=== PATIENT | male | born 1985 | race American Indian/Alaskan Native ===

== ENCOUNTER 2018-03-01 08:04 | Emergency (ER) | payer SELFPAY ==
[2018-03-01 08:50] LABS: Basophils % (Auto) 0.4 % (0.0-1.8); Eosinophils # (Auto) 0.1 K/mm3 (0.0-0.4); Eosinophils % (Auto) 1.5 % (0.0-4.3); Hematocrit 41.9 % (35.5-45.6); Hemoglobin 13.9 gm/dl (11.8-15.2); Lymphocytes # (Auto) 1.6 K/mm3 (1.2-5.4); Lymphocytes % (Auto) 24.7 % (13.4-35.0); Mean Corpuscular HGB Conc 33 % (32-34); Mean Corpuscular Hemoglobin 30 pg (28-32); Mean Corpuscular Volume 89 fl (84-94); Monocytes # (Auto) 0.9 K/mm3 (0.0-0.8); Monocytes % (Auto) 13.9 % (0.0-7.3); Platelet Count 228 K/mm3 (140-440); Red Blood Count 4.72 M/mm3 (3.65-5.03); Red Cell Distribution Width 13.6 % (13.2-15.2)
[2018-03-01 09:05] LABS: BUN/Creatinine Ratio 11; Blood Urea Nitrogen 10 mg/dL (9-20); Calcium 9.5 mg/dL (8.4-10.2); Hemolysis Index 4
[2018-03-01] MEDS ORDERED: TORADOL IV ONE (10:25)
[2018-03-01 11:06] LABS: Bilirubin,Urine NEG (Negative); Blood,Urine NEG (Negative); Color,Urine Yellow (Yellow); Mucus,Urine 3+ /HPF; Protein,Urine <15 mg/dL mg/dL (Negative)
--- NOTE | 2018-03-01 12:38 | Cat Scan Report ---
FINAL REPORT EXAM: CT ABDOMEN PELVIS W CON HISTORY: R sided abd pain colicy TECHNIQUE: CT of the abdomen and pelvis with IV contrast. Coronal and sagittal reconstructed imaging provided. PRIORS: None currently available. FINDINGS: ABDOMEN: Liver, stomach, spleen, pancreas, adrenals, and kidneys are unremarkable. No hydronephrosis. No suspicious lesions. There is no abdominal aortic aneurysm. No dissection. IVC is unremarkable. There is no periaortic or retroperitoneal adenopathy or mass. [id number] stool. Moderate stool in the ascending colon and rectum. No wall thickening or inflammatory changes. Terminal ilium is unremarkable. Appendix is normal. Small bowel loops are unremarkable. No obstructive pattern. No free air. No free fluid. Mesentery is unremarkable. Fat-containing umbilical hernia without strangulation. PELVIS: Small amount of free fluid in right posterior pelvis. Prostate is mildly prominent and heterogeneous. Bladder is unremarkable. No wall thickening or lesions. There is no pelvic mass or adenopathy. Inguinal regions are unremarkable. Bones: No suspicious osseous lesions on this limited examination of the skeleton. Metastatic disease better evaluated with bone scan. Spina bifida occulta L5 identified. IMPRESSION: Possible constipation. No acute bowel findings. Small amount of free fluid in the right posterior pelvis. Nonspecific.
--- NOTE | 2018-03-01 14:00 | Emergency Department Report ---
ED Abdominal Pain HPI - General Chief Complaint: Abdominal Pain Stated Complaint: ABD PAIN X 2DAYS Time Seen by Provider: 03/01/18 10:19 Source: family Mode of arrival: Ambulatory Limitations: No Limitations - History of Present Illness Initial Comments: Patient is a 32-year-old male who is complaining of right-sided abdominal pain 2 days. Patient states this is a intermittent pain that starts in the abdomen radiates into the right chest. Patient has nausea but no vomiting and no diarrhea. Patient states there is some mild shortness of breath when the pain hits. Patient states last up to about 5 minutes at a time. Patient denies any dysuria or hematuria at this time. Patient states the pain when it comes as a 7 out of 10 in severity. Severity scale (0 -10): 0 - Related Data Previous Rx's Medication Instructions Recorded Last Taken Type Dicyclomine [Bentyl] 20 mg PO QID #14 tablet 03/01/18 Unknown Rx Docusate Sodium [Colace] 100 mg PO BID #30 capsule 03/01/18 Unknown Rx Allergies Allergy/AdvReac Type Severity Reaction Status Date / Time dog dander Allergy Unknown Verified 03/01/18 08:06 ED Review of Systems ROS: Stated complaint: ABD PAIN X 2DAYS Other details as noted in HPI Comment: All other systems reviewed and negative ED Past Medical Hx - Past Medical History Previous Medical History?: No - Surgical History Past Surgical History?: No - Social History Smoking Status: Never Smoker Substance Use Type: None - Medications Home Medications: Home Medications Medication Instructions Recorded Confirmed Last Taken Type Dicyclomine [Bentyl] 20 mg PO QID #14 tablet 03/01/18 Unknown Rx Docusate Sodium [Colace] 100 mg PO BID #30 capsule 03/01/18 Unknown Rx ED Physical Exam - General Limitations: No Limitations General appearance: alert, in no apparent distress - Head Head exam: Present: atraumatic, normocephalic - Eye Eye exam: Present: normal appearance - ENT ENT exam: Present: mucous membranes moist - Neck Neck exam: Present: normal inspection - Respiratory Respiratory exam: Present: normal lung sounds bilaterally. Absent: respiratory distress, wheezes, rales, rhonchi - Cardiovascular Cardiovascular Exam: Present: regular rate, normal rhythm. Absent: systolic murmur, diastolic murmur, rubs, gallop - GI/Abdominal GI/Abdominal exam: Present: soft, normal bowel sounds - Rectal Rectal exam: Present: deferred - Extremities Exam Extremities exam: Present: normal inspection - Back Exam Back exam: Present: normal inspection - Neurological Exam Neurological exam: Present: alert, oriented X3 - Psychiatric Psychiatric exam: Present: normal affect, normal mood - Skin Skin exam: Present: warm, dry, intact, normal color. Absent: rash ED Course Vital Signs 03/01/18 03/01/18 03/01/18 08:06 10:14 10:15 Temperature 98.1 F Pulse Rate 79 Respiratory 16 Rate Blood Pressure 111/79 108/78 Blood Pressure [Left] O2 Sat by Pulse 99 96 99 Oximetry 03/01/18 03/01/18 03/01/18 10:30 10:37 10:46 Temperature 98.2 F Pulse Rate 66 Respiratory 16 Rate Blood Pressure 104/73 104/73 Blood Pressure 108/78 [Left] O2 Sat by Pulse 99 99 99 Oximetry 03/01/18 03/01/18 11:00 11:16 Temperature Pulse Rate Respiratory Rate Blood Pressure 110/78 110/78 Blood Pressure [Left] O2 Sat by Pulse 99 Oximetry ED Medical Decision Making - Lab Data Result diagrams: 03/01/18 08:37 03/01/18 08:37 - EKG Data -: EKG Interpreted by [facility] EKG shows normal: sinus rhythm, axis, intervals, QRS complexes, ST-T waves - EKG Data Interpretation: normal EKG - Radiology Data Radiology results: report reviewed (CT abdomen and pelvis shows a normal appendix. Patient does have significant constipation present.) Critical care attestation.: If time is entered above; I have spent that time in minutes in the direct care of this critically ill patient, excluding procedure time. ED Disposition Clinical Impression: Abdominal pain Qualifiers: Abdominal location: right lower quadrant Qualified Code(s): R10.31 - Right lower quadrant pain Constipation Qualifiers: Constipation type: slow transit constipation Qualified Code(s): K59.01 - Slow transit constipation Disposition: - TO HOME OR SELFCARE Is pt being admited?: No Does the pt Need Aspirin: No Condition: Stable Instructions: Constipation (ED), High Fiber Diet (ED) Prescriptions: Dicyclomine [Bentyl] 20 mg PO QID #14 tablet Docusate Sodium [Colace] 100 mg PO BID #30 capsule Referrals: PRIMARY CARE, [Primary Care Provider] - 3-5 Days
[2018-03-01 14:12] VITALS: BP 99/69
== END 2018-03-01 14:12 | disposition home or self-care (01) ==
LOC: ED 08:04
DX: K59.00 Constipation, unspecified (principal); Z91.048 Other nonmedicinal substance allergy status
CPT/HCPCS: 36415; 74177; 80048; 81001; 84484; 85025; 93005; 93010; 99284; J1885; Q9967